=== PATIENT | male | born 1965 | race Two or more races ===

== ENCOUNTER 2022-09-26 15:27 | Emergency (ER) | payer MEDICAID, OTHER ==
[~2022-09-26] VITALS: Ht 165.1 cm; Wt 92.2 kg
[2022-09-26 16:10] LABS: Basophils # (auto) 0 10 ^3/uL (0-0.2); Eosinophils # (auto) 0.1 10 ^3/uL (0-0.8); Neutrophils # (auto) 1.8 10 ^3/uL (1.6-8.6); Nucleated Red Blood Cells % 0.1 %; Red Blood Cells 4.67 10^6/uL (4.5-5.90); White Blood Cell 4.1 10^3/uL (4.4-10.8)
[2022-09-26 16:11] LABS: Basophils % (auto) 0.4 % (0.0-2.0); Eosinophils % (auto) 1.3 % (0.0-7.0); Hematocrit 38.2 % (41.0-53.0); Hemoglobin 12.3 g/dL (13.5-17.5); Lymphocytes # (auto) 1.8 10 ^3/uL (0.4-5.4); Lymphocytes % (auto) 43.7 % (10.0-50.0); Mean Corpuscular Hemoglobin 26.4 pg (28.0-32.0); Mean Corpuscular Hgb Conc. 32.2 g/dL (32.0-36.0); Mean Corpuscular Volume 81.8 fL (80.0-100.0); Monocytes # (auto) 0.4 10 ^3/uL (0-1.3); Monocytes % (auto) 10.4 % (0.0-12.0); Neutrophils % (auto) 44.2 % (37.0-80.0); Red Cell Distribution Width 16.2 % (11.8-14.3)
[2022-09-26 16:26] LABS: Albumin 3.7 g/dL (3.4-5.0); Calcium 8.7 mg/dL (8.5-10.1); Potassium 3.7 mmol/L (3.5-5.1)
[2022-09-26 16:29] LABS: BUN/Creatinine Ratio 11.5 (10.0-20.0); Bilirubin, Total 0.7 mg/dL (0.2-1.0); Total Protein 6.9 g/dL (6.4-8.2)
[2022-09-26 16:46] VITALS: O2SAT 95
[2022-09-26 19:50] VITALS: PULSE 88; RESP 17; O2SAT 99
[2022-09-27 01:00] VITALS: BP 151/85; PULSE 66; RESP 13; TEMP 98.2; O2SAT 98
== END 2022-09-27 03:22 | disposition home or self-care (01) ==
LOC: ER 15:27 → EDBD 15:27 → ER 09-27 02:55
DX: F15.10 Other stimulant abuse, uncomplicated (principal)
CPT/HCPCS: 36415; 71045; 80053; 84443; 84484; 85025; 93005

== ENCOUNTER 2022-09-27 15:32 | Emergency (ER) | payer MEDICAID, OTHER ==
[~2022-09-27] VITALS: Ht 165.1 cm; Wt 92.5 kg
[2022-09-27 15:47] VITALS: BP 148/97; PULSE 81; RESP 18; O2SAT 98
== END 2022-09-27 20:34 | disposition left against medical advice (07) ==
LOC: ER 15:32
DX: M25.562 Pain in left knee (principal); Z53.21 Procedure and treatment not carried out due to patient leaving prior to being seen by health care provider; X58.XXXA Exposure to other specified factors, initial encounter; Y93.89 Activity, other specified; Y92.89 Other specified places as the place of occurrence of the external cause; Y99.8 Other external cause status